=== PATIENT | male | born 1985 | race African-American/Black ===

== ENCOUNTER 2018-04-02 11:16 | Emergency (ER) | payer SELFPAY ==
[2018-04-02] MEDS ORDERED: Diazepam 5 MG TAB ONE (12:48)
[2018-04-02] MEDS ORDERED: Naproxen 500 MG TAB ONE (12:48)
== END 2018-04-02 13:11 | disposition home or self-care (01) ==
LOC: ERS 11:16
DX: M54.5 Low back pain (principal); F17.210 Nicotine dependence, cigarettes, uncomplicated; J45.909 Unspecified asthma, uncomplicated
CPT/HCPCS: 99283

== ENCOUNTER 2019-05-21 19:23 | Emergency (ER) | payer SELFPAY ==
[2019-05-21] MEDS ORDERED: Ketorolac Tromethamine 30 MG/ML VIAL ONE (19:41)
--- NOTE | 2019-05-21 19:55 | RAD ---
EXAM: 3 views of the left hand COMPARISON: None HISTORY: Thumb pain after trauma FINDINGS: 3 views of the left hand shows no evidence of acute fracture or dislocation. No degenerativ e changes are seen. No soft tissue swelling is present. IMPRESSION: Unremarkable exam.
== END 2019-05-21 20:14 | disposition home or self-care (01) ==
LOC: ERS 19:23
DX: S67.22XA Crushing injury of left hand, initial encounter (principal); J45.909 Unspecified asthma, uncomplicated; F17.210 Nicotine dependence, cigarettes, uncomplicated; W31.89XA Contact with other specified machinery, initial encounter
CPT/HCPCS: J1885

== ENCOUNTER 2020-01-04 03:06 | Emergency (ER) | payer SELFPAY ==
--- NOTE | 2020-01-04 07:57 | RAD ---
RADIOGRAPH CHEST 1 VIEW: DATE: 01/04/2020 HISTORY: 34-year-old male for medical clearance FINDINGS: There are no airspace densities, pulmonary edema, pneumothorax, or cardiomegaly. The lateral costophr enic angles are sharp. IMPRESSION: No acute cardiopulmonary findings.
--- NOTE | 2020-01-04 08:00 | RAD ---
Radiograph right shoulder 3 views: HISTORY: 34-year-old male for "medical clearance" FINDINGS: No acute fracture or dislocation. Normal glenohumeral joint. Widened AC joint without vertical step-o ff. IMPRESSION: 1. Widened acromioclavicular joint of indeterminate age, probably chronic, perhaps due to resorption of old distal clavicular tip fracture. 2. Otherwise negative.
== END 2020-01-04 04:01 ==
LOC: ERS 03:06
DX: M25.511 Pain in right shoulder (principal); J45.909 Unspecified asthma, uncomplicated; F17.210 Nicotine dependence, cigarettes, uncomplicated
CPT/HCPCS: 71045

== ENCOUNTER 2021-05-11 14:56 | Emergency (ER) | payer BC | END 2021-05-11 15:47 | disposition home or self-care (01) | LOC: ERS 14:56 | DX: H10.021 Other mucopurulent conjunctivitis, right eye (principal); J45.909 Unspecified asthma, uncomplicated; I10 Essential (primary) hypertension; F17.210 Nicotine dependence, cigarettes, uncomplicated; Z79.899 Other long term (current) drug therapy | CPT/HCPCS: 99282 ==

== ENCOUNTER 2023-04-17 07:33 | Emergency (ER) | payer BC ==
[2023-04-17] MEDS ORDERED: Dexameth. Sod Phosp. 10 MG/ML (CHEMO USE ONLY) ONE (08:24)
[2023-04-17 08:50] LABS: SARS-CoV-2 NAA Rapid Test Not Detected (NotDetected)
== END 2023-04-17 08:44 | disposition home or self-care (01) ==
LOC: ERS 07:33
DX: J02.9 Acute pharyngitis, unspecified (principal); F17.210 Nicotine dependence, cigarettes, uncomplicated; I10 Essential (primary) hypertension; Z20.822 Contact with and (suspected) exposure to COVID-19
CPT/HCPCS: 87081; 87430; 99283; J1100